=== PATIENT | male | born 1985 | race Caucasian/White ===

== ENCOUNTER 2025-05-09 04:18 | Emergency (ER) | payer SELFPAY | END 2025-05-09 06:07 | disposition home or self-care (01) | LOC: MW.ED 04:18 | DX: F10.120 Alcohol abuse with intoxication, uncomplicated (principal); F14.10 Cocaine abuse, uncomplicated; Z90.49 Acquired absence of other specified parts of digestive tract; Z91.030 Bee allergy status; Z63.0 Problems in relationship with spouse or partner; Z59.9 Problem related to housing and economic circumstances, unspecified | CPT/HCPCS: 99283; 99284 ==